=== PATIENT | female | born 2000 | race Caucasian/White ===

== ENCOUNTER 2025-11-09 06:59 | Outpatient (CLI) | payer OTHER, SELFPAY ==
--- NOTE | 2025-11-09 07:15 | CRLHL7_ITS ---
For Patients: As a result of the Cures Act, medical imaging exams and procedure reports are released immediately into your electronic medical record. You may view this report before your referring provider. If you have questions, please contact your health care provider. OBSTETRICAL ULTRASOUND TRANSABDOMINAL CLINICAL INDICATION: Dating and viability. LMP: Unknown PREVIOUS ULTRASOUND: No TECHNIQUE: Real-time estes-scale imaging of the fetus was performed transabdominal. FINDINGS: CRL: 2.3 cm, 9 weeks 0 days; TALISHA 06/14/2026 heart rate: 180 BPM Gestational sac: 3.5 cm, appears within normal limits Yolk sac: 3.0 mm, appears within normal limits Right ovary: 3.4 x 2.3 x 2.6 cm Left ovary: 3.2 x 2.1 x 2.0 cm IMPRESSION: 1. Single living intrauterine measures 9 weeks 0 days with sonographic due date of 06/14/2026. 2. heart rate is 180 beats per minute. WALDO LORENZO M.D. Diagnostic Radiologist [email or web address] Transcribed: 9:[address]/Dictated by: Waldo Lorenzo MD @ 11/09/2025 9:26:00 AM (Electronically Signed)
== END 2025-11-09 07:00 | disposition home or self-care (01) ==
PROVIDERS: Visit Provider Registered Nurse
DX: Z34.91 Encounter for supervision of normal pregnancy, unspecified, first trimester (principal); Z3A.09 9 weeks gestation of pregnancy; E03.9 Hypothyroidism, unspecified
CPT/HCPCS: 76801; 76817; 83021; 84443; 86703; 86704; 86706; 86762; 86780; 86787; 86803; 86850; 86900; 86901; 87086; 87340; 87491; 87591

== ENCOUNTER 2025-11-09 08:36 | Outpatient (CLI) | payer OTHER, SELFPAY ==
[2025-11-09 13:18] LABS: Chlamydia DNA Amplified* NOT DETECTED (No Detected); GC DNA Amplified* NOT DETECTED (No Detected)
== END 2025-11-09 08:37 | disposition home or self-care (01) ==
PROVIDERS: Visit Provider Registered Nurse
DX: Z34.81 Encounter for supervision of other normal pregnancy, first trimester (principal); E03.9 Hypothyroidism, unspecified; Z67.10 Type A blood, Rh positive
CPT/HCPCS: 83020; 83021; 84443; 85660; 86703; 86704; 86706; 86762; 86780; 86787; 86803; 86850; 86900; 86901; 87086; 87340; 87491; 87591